=== PATIENT | female | born 1990 | race Caucasian/White ===

== ENCOUNTER 2016-07-11 16:06 | Observation (INO) | payer OTHER ==
[~2016-07-11] VITALS: Ht 162.6 cm; Wt 64.9 kg
[2016-07-11 17:53] LABS: RED BLOOD COUNT 3.78 M/UL (4.00-5.10); WHITE BLOOD COUNT 8.6 K/UL (4.5-11.0)
[2016-07-11 18:11] LABS: BUN/CREATININE RATIO 18 (0-10)
[2016-07-11 22:50] LABS: GLUCOSE,CSF 64 mg/dL (50-80); TOTAL PROTEIN,CSF 27 mg/dL (20-45)
[2016-07-12] MEDS ORDERED: KLONOPIN0.5 MG PO (03:41)
[2016-07-12 08:50] LABS: HEMOGLOBIN 10.4 gm/dl (12.3-15.3); RED BLOOD COUNT 3.56 M/UL (4.00-5.10); WHITE BLOOD COUNT 10.5 K/UL (4.5-11.0)
[2016-07-12 09:16] LABS: BUN/CREATININE RATIO 20 (0-10)
[2016-07-13] MEDS ORDERED: IBUPROFEN800 MG PO (14:39)
== END 2016-07-13 14:50 | disposition home or self-care (01) ==
LOC: ER1 16:06 → MED SURG 4 07-12 01:30 → ZEROF 07-12 01:30 → MED SURG 4 07-12 03:24
PROVIDERS: Student in an Organized Health Care Education/Training Program; ADMIT Internal Medicine
DX: B34.9 Viral infection, unspecified (principal); R50.9 Fever, unspecified; R51 Headache; R79.89 Other specified abnormal findings of blood chemistry; F41.1 Generalized anxiety disorder; F17.210 Nicotine dependence, cigarettes, uncomplicated; Z88.8 Allergy status to other drugs, medicaments and biological substances; Z90.49 Acquired absence of other specified parts of digestive tract; Z98.890 Other specified postprocedural states
CPT/HCPCS: 36415; 70450; 71010; 80053; 80074; 81001; 82550; 82553; 82945; 83605; 83690; 83874; 84157; 84484; 84703; 85025; 85027; 86140; 86403; 87040; 87070; 87205; 89051; 93005; 96365; 96366; 96374; 96375; 96376; 99285; G0378; J1885; J2270; J2405; J2765; J7050; Q0163; Q9962